=== PATIENT | female | born 1965 | race African-American/Black ===

== ENCOUNTER 2017-12-18 12:08 | Emergency (ER) | payer OTHER ==
[~2017-12-18] VITALS: Ht 177.8 cm; Wt 90.7 kg
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
[2017-12-18] MEDS ORDERED: CYCL5TAB PO (13:12)
[2017-12-18] MEDS ORDERED: ONDANSETRON ODT 4 MG TAB.RAPDIS PO ONE (13:15)
[2017-12-18 13:33] VITALS: BP 158/82
[2017-12-18] MEDS ORDERED: ORPH-16 PO (13:45)
== END 2017-12-18 13:50 | disposition home or self-care (01) ==
LOC: ER 12:08
DX: S09.90XA Unspecified injury of head, initial encounter (principal); S16.1XXA Strain of muscle, fascia and tendon at neck level, initial encounter; V49.9XXA Car occupant (driver) (passenger) injured in unspecified traffic accident, initial encounter; Y93.89 Activity, other specified; Y99.8 Other external cause status; Y92.488 Other paved roadways as the place of occurrence of the external cause
CPT/HCPCS: 70450; 72125; 96372; 99284; J3010; Q0162